=== PATIENT | female | born 1960 | race Caucasian/White ===

== ENCOUNTER → 2016-07-01 | Outpatient (CLI) | payer OTHER, MEDICARE ==
[~2016-07-01] MED LIST: ACET-1311 PO; AMLO-110 PO; AMPH30TA2 PO; CLOM75CA3 PO; CLON1TAB3 PO; HYDR-5688 PO; LAMO1TAB21 PO; LEVO100T PO; LEVO125T72 PO; LISI20TA3 PO; OMEP40CA PO; RISP1TAB3 PO; TRIATAB3 PO; VERA240C3 PO
--- NOTE | 2016-07-01 13:34 | DIAGNOSTIC IMAGING REPORT ---
RIBS BILATERAL W/PA CHEST CLINICAL HISTORY: Bilateral rib pain. COMPARISON STUDY: Chest 08/17/2011. FINDINGS: The heart is normal in size. No focal lung consolidations. No evidence for pulmonary edema. No pleural effusions. No pneumothorax. No acute rib fractures. No pneumothorax. IMPRESSION: No acute rib fractures. No pneumothorax. Electronically signed by: Chalino Bains M.D. 07/01/2016 1:32 PM Dictated Date/Time: 07/01/2016 1:29 PM
--- NOTE | 2016-07-01 13:40 | DIAGNOSTIC IMAGING REPORT ---
RIGHT ELBOW 3 VIEWS CLINICAL HISTORY: Falls with right elbow pain. FINDINGS: 3 views of the right elbow are obtained. No prior studies are available for comparison at the time of dictation. The skeletal structures are well mineralized. No fracture is seen. The joint spaces are well-maintained. No joint effusion is identified. The overlying soft tissues are within normal limits. IMPRESSION: Unremarkable radiographic assessment of the right elbow. Electronically signed by: Lawson Michaud M.D. 07/01/2016 1:39 PM Dictated Date/Time: 07/01/2016 1:38 PM
== END | disposition home or self-care (01) ==
LOC: C.RDSM 13:00
PROVIDERS: ATTEND Physician Assistant
DX: M25.521 Pain in right elbow (principal); R07.81 Pleurodynia

== ENCOUNTER → 2016-08-17 | Outpatient (CLI) | payer OTHER, MEDICARE ==
[~2016-08-17] MED LIST changes: +ATV/1 PO; +DPKEC500 PO; -HYDR-5688 PO; +OMEP40CA41 PO; +RANI150T2 PO; +RISP2TAB21 PO; +VNTHFA/IN INH
[2016-08-17 10:32] LABS: ESTIMATED AVERAGE GLUCOSE 114 mg/dl; HA1C FLAG Normal (Normal)
[2016-08-17 12:29] LABS: BLOOD UREA NITROGEN 11 mg/dl (7-18); CARBON DIOXIDE 29 mmol/L (21-32); CHLORIDE 103 mmol/L (98-107); POTASSIUM 3.9 mmol/L (3.5-5.1); SODIUM 141 mmol/L (136-145)
[2016-08-17 13:02] LABS: ALT/SGPT 35 U/L (12-78); AST/SGOT 19 U/L (15-37); BUN/CREATININE RATIO 13.6 (10-20); TRIGLYCERIDES 77 mg/dl (0-150); VERY LOW DENSITY LIPOPROT CALC 15 mg/dl
[2016-08-17 13:04] LABS: ALB/GLOB RATIO 1.2 (0.9-2); ALKALINE PHOSPHATASE 103 U/L (45-117); HDL CHOLESTEROL 67 mg/dl
[2016-08-17 13:33] LABS: CALCIUM 9.3 mg/dl (8.5-10.1); GLUCOSE 110 mg/dl (70-99)
[2016-08-17 13:46] LABS: CHOLESTEROL 238 mg/dl (0-200); CHOLESTEROL/HDL RATIO 3.6; LDL CHOLESTEROL CALCULATED 156 mg/dl
--- NOTE | 2016-08-24 08:08 | CODING QUERY MEDICAL NECESSITY ---
CQSUPPORTING DIAGNOSIS NEEDED A supporting diagnosis is required for the test/procedure performed on this patient in order for us to be reimbursed by the patient's insurance. Please provide a supporting diagnosis for the following test/procedure listed below next to the test name along with your signature. *If there is no additional diagnosis for this patient that would support the following test/procedure please document that below next to the test/procedure. Test(s)/Procedure(s) that require a supporting diagnosis: DOS 08/17/16 GLYCATED HEMOGLOBIN TEST Provider Signature: Date: Thank you Santa [facility] Information Management Once completed, please kindly fax back to [phone] For questions please call [phone]
== END | disposition home or self-care (01) ==
LOC: C.LAB 09:33
PROVIDERS: ATTEND Internal Medicine
DX: G47.33 Obstructive sleep apnea (adult) (pediatric) (principal); R73.01 Impaired fasting glucose

== ENCOUNTER → 2016-09-16 | Outpatient (CLI) | payer OTHER, MEDICARE | END | disposition home or self-care (01) | LOC: C.RDSM 13:59 | PROVIDERS: ATTEND Physical Medicine & Rehabilitation Sports Medicine | DX: M65.342 Trigger finger, left ring finger (principal) ==

== ENCOUNTER → 2016-09-30 | Outpatient (CLI) | payer OTHER, MEDICARE ==
--- NOTE | 2016-10-01 06:31 | PAP/PSG TECHNICIAN REPORT ---
[facility] Accounting Systems Analyst Polysomnogram Report Study name: None Report date: 10/01/2016 Study date: 09/30/2016 Referring Physician: DR. Jason BAKER Name: NOLAN AKERS Interpreting Physician: Aman Jiménez M.D. Date of : 1960 Accounting Systems Analyst: Candi Palomino RPSGT. Sex: Female Age: 56 Study Type: PSG PAP Weight: 279 lbs Height: 56 years, Height 5' 4" BMI: 47.89 Medications: ADDERALL 30 MG, KLONOPIN 0.5 MG, RISPERIDONE 1 MG, SUCRALFATE 1 GM, FLUTICAONE PROPIONATE, OMEPRAZOLE 40 MG, RANITIDINE 150 MG, AMLODIPINE 5 MG, LISINOPRIL 20 MG, TRIAMTERENE-HCTZ 37.5-25 MG, VERAPAMIL 240 MG, LEVOTHYROXINE 100 MCG, MUPIROCIN, PROAIR HFA, TRIAMCIOLONE ACETONIDE, IBUPROFEN 600 MG, LAMICTAL 150 MG Patient History 56 yr-old female here for a CPAP update study. She has been using CPAP since 2013. She has been experiencing daytime sleepiness. She has trouble with her mask leaking, so she is now trying the same mask but a size down. She is using an AirFit F10 full face mask size extra small from [employer]. The test was started on room air and 6 CMH2O (per pt comfort). ETCO2 testing was not utilized during this study. Room 1 Parameters Monitored NPSG: E1-M2, E2-M1, Fp1-M2, Fp2-M1, F3-M2, F4-M2, F4-M1, C3-M2, C4-M2, C4-M1, O1-M2, O2-M2, O2-M1, T3-M2, T4-M1, P3-M2, P4-M1, CHIN1, CHIN2, HR, EKG, Legs, PFLOW, SNOR, FLOW, CFLOW, Tidal Volume, THOR, ABDO, SpO2, PLTH, CPRESS, ETCO2 Wave, ETCO2, pH Sleep Architecture Sleep Stages Time at Lights Off 9:50:18 PM STAGES Time (min.) TST (%) Time at Lights On 5:31:18 AM Wake 156.5 -- Total Recording Time (TRT) 461.00 min. N1 66.5 22 Total Sleep Period (TSP) 417.0 min. N2 198.0 65 Total Sleep Time (TST) 304.5min. N3 20.5 7 Awake Time 156.5 min. REM 19.5 6 Wake after Sleep Onset 113.5 min. Sleep Efficiency (SE) 66 % Sleep Onset Latency (MADHAVI) 43.0 min. Number of Stage 1 Shifts None Awakenings 45 Stage Changes 166 Number of REM periods 4 REM 19.5 6 REM Latency 364.5 min. NREM 285.0 94 Body Position Analysis Supine Right Left Side Prone Vertical Total Sleep Time (min.) 55.7 12.5 240.3 252.84 0.0 0.0 Total Sleep Time (%) 17% 4% 79% 83 0% N/A% Total Sleep Time REM (min.) 0.0 0.0 19.5 None 0.0 0.0 Total Sleep Time NREM (min.) 51.7 12.5 220.8 None 0.0 0.0 Intermittent Wake (min.) 4.0 30.1 122.2 None 0.0 0.0 Total Sleep Period (%) 13% None None None None None Arousals Myoclonus (PLM) * Events Count Index Events Count Index Spontaneous 72 14 Events Awake (PLMW) 650 249.2 Respiratory 8 2.2 Events Asleep w/ Arousal (PLMA) 20 3.9 PLM 20 4 Events Asleep w/o Arousal (PLMS) 82 16.2 Snoring 16 3 Total Asleep 102 20.1 Total 116 23 Total 752 98 Respiratory Analysis * CA OA MA CH H RERA Total Count 0 0 0 0 6 7 6 Index 0.0 0.0 0.0 0 1.2 1 2.6 Mean Duration 0.0 0.0 0.0 0.00 17.6 15.9 16.7 Longest Duration 0.0 0.0 0.0 0.00 0.0 20.6 23.6 Respiratory Event Summary Total Supine ~Supine Right Left Prone REM NREM Apneas Count 0 0 0 0 0 N/A 0 0 Index 0.0 0 0 0.0 0.0 N/A 0 0 Hypopneas (4% Desat) Count 6 1 5 0 5 N/A 2 4 Index 1.2 1.2 1 0.0 1.2 N/A 6.2 0.8 Apneas & All Hypopneas Count 6 1 5 0 5 N/A 2 4 Index 1.2 1 1 0 1 N/A 6.2 0.8 Respiratory Events (Bonding And Composite Fabricator+All Hyp+RERA) Count 6 4 9 1 8 N/A 2 4 Index 2.6 5 2 4.8 2.0 N/A 6.2 2.3 Respiratory Related Arousal Count 8 4 7 1 6 N/A 1 10 Index 2.2 5 2 5 1 N/A 3 2 Snoring Analysis Supine Right Left Prone REM NREM Total Snore duration 14.7 min Snores count 440 14 246 N/A 10 690 700 Snore mean duration 1.3 Sec Snores index 511 67 61 N/A 30.8 145.3 137.9 TST with snoring (%) 4.8% Desaturation Event Summary: Minimum %SpO2 Event Count Mean/Min/Max Duration(sec.) Desaturation Index % Time In Bed > 90 26 29.9 / 10.0 / 58.5 4.2 83.8 86 - 90 1 10.0 / 10.0 / 10.0 0.8 16.1 81 - 85 0 N/A 0.0 0.0 76 - 80 1 9.3 / 9.3 / 9.3 389.2 0.0 71 - 75 0 N/A 0.0 0.0 66 - 70 0 N/A 0.0 0.0 61 - 65 0 N/A 0.0 0.0 56 - 60 0 N/A 0.0 0.0 51 - 55 0 N/A 0.0 0.0 < 50 0 N/A 0.0 0.0 Total REM NREM Awake <50% 0.0 min. 0.0 min. 0.0 min. 0.0 min. 51 - 60% 0.0 min. 0.0 min. 0.0 min. 0.0 min. 61 - 70% 0.0 min. 0.0 min. 0.0 min. 0.0 min. 71 - 80% 0.2 min. 0.0 min. 0.0 min. 0.2 min. 81 - 90% 72.5 min. 2.2 min. 64.4 min. 5.8 min. 91 - 100% 375.7 min. 17.1 min. 220.6 min. 138.0 min. Average 92 92 91 93 Minimum SpO2 78 89 85 78 Desaturation Event Index 3.5 6.2 1.3 7.3 # Desat. Events below 89% 4 N/A 1 3 Time(%) with Saturation below 89% 1.4 0.0 1.3 0.1 Time(min.) with Saturation below 89% 6.4 0.0 5.9 0.5 Time (mins) REM (mins) NREM (mins) % of TST SpO2 Below 90% 4 1 N3 7.6 SpO2 Below 88% 1 0 0 1 Heart Rate Analysis Min (bpm) Max (bpm) Average (bpm) Awake 41 98 83 NREM 78 88 81 REM 79 87 82 Overall 78 88 82 Supplemental O2 Values Minimum O2 level: None Value Start Time End Time Accounting Systems Analyst Comments Ms. Akers slept in the right, left, and supine positions. No cardiac arrhythmias were noted. PLMs were noted. No bruxism noted. CPAP was initiated at +4 CMH2O and up-titrated to a level of +9 CMH2O, Cflex 3. An AifFit F10 full face mask size extra small from [employer] was used during titration She awoke to use the restroom two times during the night. Ms. Akers stated that she slept about the same as usual although she had a lot of pain in her hips. The final report will be interpreted and signed by a sleep physician. The completed physician report will then be placed in the patient medical record. Therapy Event: Therapy (cm H20) 6 7 8 9 Total Time at Pressure (min.) 68.8 155.7 109.7 126.8 TST at Pressure (min.) 24.3 102.2 68.7 109.3 # Periods 1 1 1 1 Sleep Onset (min.) 43.0 0.0 0.0 0.0 REM Onset (min.) N/A N/A N/A 73.3 Sleep Efficiency % 35 65 62 86 Wakefulness (%) 64.7 34.4 37.4 13.8 Wakefulness (min.) 44.5 53.5 41.0 17.5 NREM 1 (%) 10.2 11.2 14.6 20.5 NREM 1 (min.) 7.0 17.5 16.0 26.0 NREM 2 (%) 25.1 49.9 48.1 39.7 NREM 2 (min.) 17.3 77.7 52.7 50.3 NREM 3 (%) 0.0 4.5 0.0 10.6 NREM 3 (min.) 0.0 7.0 0.0 13.5 REM (%) 0.0 0.0 0.0 15.4 REM (min.) 0.0 0.0 0.0 19.5 # Arousals 20 36 28 32 Arousal Index 49.4 21.1 24.4 17.6 # Snore 30 129 81 460 Snore Index 74.1 75.8 70.7 252.5 AHI 0.0 0.0 1.7 2.2 AHI Supine N/A N/A N/A 1.2 AHI Non-Supine 0.0 0.0 1.7 3.1 NREM AHI 0.0 0.0 1.7 1.3 REM AHI N/A N/A N/A 6.2 RDI 0.0 1.2 3.5 3.8 # Obstructive 0 0 0 0 # Central Ap 0 0 0 0 # Mixed 0 0 0 0 # Hypopneas 0 0 2 4 RERAS 0 2 2 3 Total Respiratory Events 0 2 4 7 Time Below SpO2 89.00% (min.) 0.0 0.1 0.0 5.8 Mean NREM SpO2 (%) 91 91 92 91 Mean REM SpO2 (%) N/A N/A N/A 92 Mean Sleep SpO2 (%) 91 91 92 91 Min NREM SpO2 (%) 89 88 89 85 Min REM SpO2 (%) N/A N/A N/A 89 Position Supine (min.) 0.0 0.0 0.0 51.7 Position Non-supine (min.) 24.3 102.2 68.7 57.6 LM Index Sleep 19.8 33.5 18.3 8.8 LM Index NREM 19.8 33.5 18.3 0.7 LM Index REM N/A N/A N/A 46.2 Mean Heart Rate (bpm) 81 81 83 81 Min Heart Rate (bpm) 79 78 80 78
--- NOTE | 2016-10-05 20:38 | POLYSOMNOGRAPH REPORT ---
CLINICAL DATA: A 56-year-old female with BMI of 47.[address] Haris Wilson for a sleep study. She has been having excessive daytime sleepiness. She has been on the CPAP since 2013. She is currently using an AirFit F10 facemask, size extra small from [employer]. SLEEP ARCHITECTURE: Total sleep period was 417 minutes. Total sleep time was 304.5 minutes, split between 285 minutes of non-REM sleep and 19.5 minutes of REM sleep. Sleep onset latency was delayed at 43 minutes. REM latency was delayed at 364.5 minutes. Sleep efficiency was reduced to 66%. Wake after sleep onset was 113.5 minutes. Sleep consisted of stage N1 22%, N2 65%, N3 7%, and REM 6%. AROUSAL DATA: 116 arousals were recorded for an index of 23 per hour. PLM DATA: Mildly elevated limb movements during sleep were noted. There were 102 limb movement events during sleep noted for an index of 20 per hour with arousal index of 4 per hour. RESPIRATORY DATA: The AHI was 1.2. There were 6 hypopneic episodes; the mean duration of hypopnea was 17.6 seconds. OXIMETRY DATA: No significant hypoxemia was seen. The oxygen alvaro was 85% during non-REM sleep. The mean saturation was 92%. Time below 88% was 1 minute. EKG: Heart ranged from 70-88 beats per minute. No arrhythmias were noted. STUDIO CONTROL OPERATOR'S COMMENTS AND TREATMENT SUMMARY: The patient slept in the right, left, and supine positions. CPAP was started and titrated up to a final pressure setting of 9 cm of water, C-flex 3 using an AirFit F10 full facemask extra small from [employer]. The patient awoke several times because of pain in her hips. At a final pressure setting of 9 cm of water pressure, she slept for 109 minutes with an AHI of 2.2. IMPRESSION: Obstructive sleep apnea corrected with CPAP 9 cm of water pressure, C-Flex 3 using an AirFit F10 full facemask, size extra small from [employer]. RECOMMENDATIONS: The patient's CPAP should be set at 9 cm of water pressure with the above-noted interface. She should be seen back in followup within 90 days to document efficacy and compliance. [facility]
== END | disposition home or self-care (01) ==
LOC: C.NEUR 20:00
PROVIDERS: ATTEND Internal Medicine
DX: G47.33 Obstructive sleep apnea (adult) (pediatric) (principal)

== ENCOUNTER → 2016-12-02 | Outpatient (CLI) | payer OTHER, MEDICARE ==
[~2016-12-02] MED LIST changes: -ATV/1 PO; -DPKEC500 PO; -OMEP40CA41 PO; -RANI150T2 PO; -RISP2TAB21 PO; -VNTHFA/IN INH
--- NOTE | 2016-12-02 16:00 | MAMMOGRAPHY REPORT ---
BILATERAL DIGITAL SCREENING MAMMOGRAM TOMOSYNTHESIS WITH CAD: 12/02/2016 CLINICAL HISTORY: Routine screening. Patient has no complaints. TECHNIQUE: Breast tomosynthesis in addition to standard 2D mammography was performed. Current study was also evaluated with a Computer Aided Detection (CAD) system. COMPARISON: Comparison is made to exams dated: 12/02/2015 mammogram, 11/26/2014 mammogram, 07/10/2014 m ammogram, 11/23/2013 mammogram, 10/19/2012 mammogram, and 10/19/2011 mammogram - [facility]ter. BREAST COMPOSITION: The tissue of both breasts is almost entirely fatty. FINDINGS: No suspicious masses, calcifications, or areas of architectural distortion are noted in ei ther breast. There has been no significant interval change compared to prior exams. There are stable postsurgical changes from bilateral reduction mammoplasty. Bilateral benign appearing calcification s are not significantly changed. IMPRESSION: ACR BI-RADS CATEGORY 2: BENIGN There is no mammographic evidence of malignancy. A 1 year screening mammogram is recommended. The pa tient will receive written notification of the results. Approximately 10% of breast cancers are not detected with mammography. A negative mammographic report should not delay biopsy if a clinically suggestive mass is present. Marci Mckeon M.D. /:12/02/2016 10:24:39 Training Project Manager: Kiley KING(Samantha)(Ro)(BD), [facility] letter sent: Normal 1/2 BI-RADS Code: ACR BI-RADS Category 2: Benign
== END | disposition home or self-care (01) ==
LOC: C.MAMM 09:07
PROVIDERS: ATTEND Internal Medicine
DX: Z12.31 Encounter for screening mammogram for malignant neoplasm of breast (principal)

== ENCOUNTER → 2016-12-31 | Outpatient (CLI) | payer OTHER, MEDICARE | END | disposition home or self-care (01) | LOC: C.LABSPEC 13:41 | PROVIDERS: ATTEND Physician Assistant | DX: N89.8 Other specified noninflammatory disorders of vagina (principal); H91.90 Unspecified hearing loss, unspecified ear ==

== ENCOUNTER → 2017-02-15 | Outpatient (CLI) | payer OTHER, MEDICARE ==
[~2017-02-15] MED LIST changes: -ACET-1311 PO; -CLOM75CA3 PO; +DPKEC500 PO; -LEVO100T PO; -OMEP40CA PO; +OMEP40CA41 PO; +RANI150T2 PO; -RISP1TAB3 PO; +RISP2TAB21 PO; +VNTHFA/IN INH
== END | disposition home or self-care (01) ==
LOC: C.RDSM 14:00
PROVIDERS: ATTEND Physical Medicine & Rehabilitation Sports Medicine
DX: M25.552 Pain in left hip (principal)

== ENCOUNTER → 2017-02-17 | Outpatient (CLI) | payer OTHER, MEDICARE ==
[2017-02-17 13:31] LABS: BASO % 0.1 %; BASO ABS # 0.02 K/uL (0-0.2); COMPLETE YES; EOS % 0.4 %; HEMATOCRIT 39.1 % (37-47); IG% 0.6 %; LYMPH % 18.1 %; LYMPH ABS # 2.46 K/uL (1.2-3.4); MEAN CELL VOLUME 88.1 fL (80-100); MEAN CORPUSCULAR HEMOGLOBIN 28.8 pg (25-34); MEAN CORPUSCULAR HGB CONC 32.7 g/dl (32-36); MEAN PLATELET VOLUME 10.2 fL (7.4-10.4); MONO % 8.3 %; NEUT % 72.5 %; PLATELET COUNT 243 K/uL (130-400); RED BLOOD COUNT 4.44 M/uL (4.2-5.4)
[2017-02-17 13:50] LABS: ESTIMATED AVERAGE GLUCOSE 114 mg/dl; HA1C FLAG Normal (Normal)
[2017-02-17 14:08] LABS: ALT/SGPT 32 U/L (12-78); AST/SGOT 24 U/L (15-37); BLOOD UREA NITROGEN 14 mg/dl (7-18); BUN/CREATININE RATIO 18.1 (10-20); CALCIUM 9.2 mg/dl (8.5-10.1); CARBON DIOXIDE 26 mmol/L (21-32); CHLORIDE 100 mmol/L (98-107); CHOLESTEROL 170 mg/dl (0-200); FERRITIN 21.4 ng/ml (8.0-388.0); GLUCOSE 95 mg/dl (70-99); POTASSIUM 3.7 mmol/L (3.5-5.1); SODIUM 136 mmol/L (136-145)
[2017-02-17 14:19] LABS: ALB/GLOB RATIO 1.1 (0.9-2); ALKALINE PHOSPHATASE 90 U/L (45-117); CHOLESTEROL/HDL RATIO 2.5; HDL CHOLESTEROL 69 mg/dl; LDL CHOLESTEROL CALCULATED 88 mg/dl; TRIGLYCERIDES 66 mg/dl (0-150); VERY LOW DENSITY LIPOPROT CALC 13 mg/dl
[2017-02-17 14:42] LABS: LYME DISEASE AB IGG NEG (NEG); LYME DISEASE AB IGM NEG (NEG)
== END | disposition home or self-care (01) ==
LOC: C.LABBC 11:26
PROVIDERS: ATTEND Psychiatry & Neurology Psychiatry
DX: Z00.00 Encounter for general adult medical examination without abnormal findings (principal); F31.81 Bipolar II disorder; G25.81 Restless legs syndrome; G47.33 Obstructive sleep apnea (adult) (pediatric); M79.1 Myalgia

== ENCOUNTER → 2017-03-10 | Outpatient (CLI) | payer OTHER, MEDICARE | END | disposition home or self-care (01) | LOC: C.LABBC 13:44 | PROVIDERS: ATTEND Psychiatry & Neurology Psychiatry | DX: F31.81 Bipolar II disorder (principal) ==

== ENCOUNTER → 2017-04-23 | Outpatient (CLI) | payer OTHER, MEDICARE ==
--- NOTE | 2017-04-23 10:58 | DIAGNOSTIC IMAGING REPORT ---
PA CHEST WITH BILATERAL RIB SERIES CLINICAL HISTORY: Bilateral rib pain. Recent fall. FINDINGS: A PA chest radiograph with 8 views from a bilateral rib series is compared to study dated 02/02/2017 and correlated with rib series dated 07/01/2016. The cardiomediastinal silhouette is unremarkable. There is mild bibasilar atelectasis. Chronic interstitial thickening is similar to previous. No airspace consolidation or pleural effusion is identified. No pneumothorax is seen. The skeletal structures are osteopenic. There is no radiographic evidence of acute/distracted rib fracture on the bilateral rib series. The remainder of the bony thorax is grossly intact. IMPRESSION: 1. No active disease in the chest. 2. There is no radiographic evidence of rib fracture as clinically queried. Electronically signed by: Lawson Michaud M.D. 04/23/2017 10:56 AM Dictated Date/Time: 04/23/2017 10:55 AM
== END | disposition home or self-care (01) ==
LOC: C.RDSM 13:01
PROVIDERS: ATTEND Physical Medicine & Rehabilitation Sports Medicine
DX: R07.81 Pleurodynia (principal)

== ENCOUNTER → 2017-05-28 | Outpatient (CLI) | payer OTHER, MEDICARE ==
--- NOTE | 2017-05-28 11:33 | DIAGNOSTIC IMAGING REPORT ---
Study: Fusion CT of the sinuses. HISTORY: Ocular pressure. Pain. FINDINGS: All major sinuses are clear. The ostiomeatal units are patent bilaterally. Orbital margins are intact. There is no bony destructive process. Globes are symmetric. There is no evidence for proptosis. IMPRESSION: Normal study. Electronically signed by: Raoul Dinh M.D. 05/28/2017 11:32 AM Dictated Date/Time: 05/28/2017 11:30 AM
== END ==
LOC: C.CTS 11:12
PROVIDERS: ATTEND Physician Assistant
DX: H57.9 Unspecified disorder of eye and adnexa (principal)

== ENCOUNTER → 2017-05-31 | Outpatient (CLI) | payer OTHER, MEDICARE | END | disposition home or self-care (01) | LOC: C.PAPS 16:22 | PROVIDERS: ATTEND Obstetrics & Gynecology | DX: Z12.4 Encounter for screening for malignant neoplasm of cervix (principal); Z78.0 Asymptomatic menopausal state ==

== ENCOUNTER → 2017-06-02 | Outpatient (CLI) | payer OTHER, MEDICARE | END | disposition home or self-care (01) | LOC: C.PATHSPEC 15:48 | PROVIDERS: ATTEND Obstetrics & Gynecology | DX: A63.0 Anogenital (venereal) warts (principal) ==

== ENCOUNTER → 2017-06-10 | Outpatient (CLI) | payer OTHER, MEDICARE | END | disposition home or self-care (01) | LOC: C.LAB 10:11 | DX: J30.9 Allergic rhinitis, unspecified (principal) ==

== ENCOUNTER → 2017-06-18 | Outpatient (CLI) | payer OTHER, MEDICARE | END | disposition home or self-care (01) | LOC: C.LAB 15:02 | PROVIDERS: ATTEND Psychiatry & Neurology Psychiatry | DX: F31.81 Bipolar II disorder (principal); Z79.899 Other long term (current) drug therapy; Z51.81 Encounter for therapeutic drug level monitoring ==

== ENCOUNTER → 2017-07-16 | Outpatient (CLI) | payer OTHER, MEDICARE ==
[2017-07-16 11:09] LABS: BASO % 0.2 %; BASO ABS # 0.02 K/uL (0-0.2); EOS % 1.6 %; EOS ABS # 0.13 K/uL (0-0.5); HEMATOCRIT 40.7 % (37-47); HEMOGLOBIN 13.6 g/dL (12.0-16.0); IG# 0.02 K/uL (0.00-0.02); LYMPH ABS # 1.91 K/uL (1.2-3.4); MEAN CELL VOLUME 88.1 fL (80-100); MEAN CORPUSCULAR HEMOGLOBIN 29.4 pg (25-34); MEAN CORPUSCULAR HGB CONC 33.4 g/dl (32-36); MEAN PLATELET VOLUME 9.9 fL (7.4-10.4); MONO % 6.9 %; MONO ABS # 0.57 K/uL (0.11-0.59); NEUT % 68.1 %; NEUT ABS # 5.66 K/uL (1.4-6.5); PLATELET COUNT 266 K/uL (130-400); RED CELL DISTRIBUTION WIDTH CV 13.2 % (11.5-14.5); RED CELL DISTRIBUTION WIDTH SD 42.1 fL (36.4-46.3); WHITE BLOOD COUNT 8.31 K/uL (4.8-10.8)
[2017-07-16 11:29] LABS: HEMOGLOBIN A1C 5.4 % (4.5-5.6)
[2017-07-16 11:44] LABS: ALBUMIN 3.6 gm/dl (3.4-5.0); ALT/SGPT 51 U/L (12-78); AST/SGOT 19 U/L (15-37); BLOOD UREA NITROGEN 14 mg/dl (7-18); CALCIUM 9.1 mg/dl (8.5-10.1); CARBON DIOXIDE 28 mmol/L (21-32); CREATININE 0.76 mg/dl (0.60-1.20); GLUCOSE 114 mg/dl (70-99); POTASSIUM 4.2 mmol/L (3.5-5.1); SODIUM 138 mmol/L (136-145)
[2017-07-16 11:52] LABS: ALKALINE PHOSPHATASE 105 U/L (45-117); CHOLESTEROL 195 mg/dl (0-200); LDL CHOLESTEROL CALCULATED 107 mg/dl; TOTAL PROTEIN 7.2 gm/dl (6.4-8.2)
== END | disposition home or self-care (01) ==
LOC: C.LABBC 09:05
PROVIDERS: ATTEND Internal Medicine
DX: K76.0 Fatty (change of) liver, not elsewhere classified (principal); E03.9 Hypothyroidism, unspecified; R53.83 Other fatigue; G47.33 Obstructive sleep apnea (adult) (pediatric); R73.01 Impaired fasting glucose; I10 Essential (primary) hypertension; Z11.59 Encounter for screening for other viral diseases

== ENCOUNTER → 2017-10-29 | Outpatient (CLI) | payer OTHER, MEDICARE ==
[~2017-10-29] MED LIST changes: -AMLO-110 PO; +AMLO5TAB3 PO; -CLON1TAB3 PO; +CLON1TAB4 PO
--- NOTE | 2017-10-29 16:22 | DIAGNOSTIC IMAGING REPORT ---
R FINGER(S) MIN 2 VIEWS HISTORY: 57 years-old Female RIGHT 2ND FINGER PAIN acute pain of the right second finger COMPARISON: None available TECHNIQUE: 3 views of the right fingers with attention to the second digit FINDINGS: Mild triscaphe and first carpometacarpal osteoarthritis. Additionally, mild degenerative changes are noted throughout the visualized interphalangeal joints. There is mild soft tissue swelling about the second digit. No acute fracture, dislocation or opaque foreign body. No evidence of erosive arthropathy. IMPRESSION: 1. Soft tissue swelling without acute fracture. 2. Mild osteoarthritis as above. The above report was generated using voice recognition software. It may contain grammatical, syntax or spelling errors. Electronically signed by: Ike Locke M.D. 10/29/2017 4:21 PM Dictated Date/Time: 10/29/2017 4:19 PM
== END | disposition home or self-care (01) ==
LOC: C.RDSM 15:24
PROVIDERS: ATTEND Physician Assistant
DX: M79.644 Pain in right finger(s) (principal)

== ENCOUNTER → 2017-11-23 | Outpatient (CLI) | payer OTHER, MEDICARE ==
[2017-11-23 17:02] LABS: BLOOD UREA NITROGEN 13 mg/dl (7-18); CALCIUM 9.8 mg/dl (8.5-10.1); CARBON DIOXIDE 29 mmol/L (21-32); CREATININE 0.82 mg/dl (0.60-1.20); GLUCOSE 108 mg/dl (70-99); SODIUM 136 mmol/L (136-145)
== END | disposition home or self-care (01) ==
LOC: C.LABBC 12:45
PROVIDERS: ATTEND Internal Medicine
DX: I10 Essential (primary) hypertension (principal)

== ENCOUNTER → 2017-11-29 | Outpatient (CLI) | payer OTHER, MEDICARE ==
--- NOTE | 2017-11-29 11:45 | DIAGNOSTIC IMAGING REPORT ---
L ELBOW MIN 3 VIEWS HISTORY: 57 years-old Female LEFT ELBOW PAIN acute left-sided elbow pain COMPARISON: None available TECHNIQUE: 3 views of the left elbow FINDINGS: Moderate marginal spurring about the medial and lateral epicondyles. No acute fracture, dislocation or large joint effusion. The radial head appears intact. No opaque foreign body. IMPRESSION: No acute fracture or dislocation. The above report was generated using voice recognition software. It may contain grammatical, syntax or spelling errors. Electronically signed by: Ike Locke M.D. 11/29/2017 11:44 AM Dictated Date/Time: 11/29/2017 11:43 AM
== END | disposition home or self-care (01) ==
LOC: C.RDSM 11:01
PROVIDERS: ATTEND Physician Assistant
DX: M25.522 Pain in left elbow (principal)

== ENCOUNTER → 2017-11-30 | Outpatient (CLI) | payer OTHER, MEDICARE | END | disposition home or self-care (01) | LOC: C.PATH 08:07 | PROVIDERS: ATTEND Physician Assistant Medical | DX: R22.1 Localized swelling, mass and lump, neck (principal) ==